=== PATIENT | male | born 1995 | race Caucasian/White ===

== ENCOUNTER 2017-04-11 14:52 | Emergency (ER) | payer OTHER ==
[~2017-04-11] VITALS: Ht 175.2 cm; Wt 63.5 kg
[~2017-04-11 14:52] MED LIST: CLONIDINE0.1 MG PO; NAPROSYN500 MG PO; NORCO 325 MG-51 TAB PO
[2017-04-11] MEDS ORDERED: IBU800 MG PO (17:10)
== END 2017-04-11 16:58 | disposition home or self-care (01) ==
LOC: ED 14:52
DX: S29.012A Strain of muscle and tendon of back wall of thorax, initial encounter (principal); F17.200 Nicotine dependence, unspecified, uncomplicated; V00.311A Fall from snowboard, initial encounter; Y93.23 Activity, snow (alpine) (downhill) skiing, snowboarding, sledding, tobogganing and snow tubing; Y92.89 Other specified places as the place of occurrence of the external cause; Y99.9 Unspecified external cause status

== ENCOUNTER 2021-02-19 16:35 | Emergency (ER) | payer OTHER ==
[~2021-02-19] VITALS: Ht 177.8 cm; Wt 65.8 kg
[~2021-02-19 16:35] MED LIST changes: +IBU800 MG PO
== END 2021-02-19 22:04 | disposition left against medical advice (07) ==
LOC: ED 16:35
DX: J02.9 Acute pharyngitis, unspecified (principal); Z53.21 Procedure and treatment not carried out due to patient leaving prior to being seen by health care provider

== ENCOUNTER 2021-08-14 11:05 | Emergency (ER) | payer OTHER ==
[~2021-08-14] VITALS: Wt 62.6 kg
== END 2021-08-14 13:15 | disposition home or self-care (01) ==
LOC: ED 11:05
DX: R07.9 Chest pain, unspecified (principal); M54.2 Cervicalgia; V43.52XA Car driver injured in collision with other type car in traffic accident, initial encounter; Y93.89 Activity, other specified; Y92.89 Other specified places as the place of occurrence of the external cause; Y99.8 Other external cause status

== ENCOUNTER 2022-02-21 13:37 | Emergency (ER) | payer SELFPAY ==
[~2022-02-21] VITALS: Ht 172.7 cm; Wt 61.2 kg
== END 2022-02-21 14:35 | disposition home or self-care (01) ==
LOC: ED 13:37
DX: J02.9 Acute pharyngitis, unspecified (principal); R68.83 Chills (without fever)